=== PATIENT | male | born 1960 | race Asian ===

== ENCOUNTER → 2019-04-23 | Day surgery (SDC) | payer BC ==
[~2019-04-23] MED LIST: Acetaminophen TAB* 325 MG PO PRN; Buffered Lidocaine 1% SYRIN* 1 ML/SYRINGE INTRADERM ONE; Bupivacaine 0.5% W/EPI SDV* 10 ML VIAL INJ ONE; Dexamethasone IV* 4 MG/ML 1 ML (4 MG) ONE; DiMENhydriNATE IV* 50 MG/ML VIAL IV PUSH PRN; Glycopyrrolate IV* 0.2 MG/ML 1 ML VIAL ONE; Ketorolac INJ* 30 MG/ML 1 ML VIAL ONE; Lidocaine 1% INJ* 10 MG/ML 30 ML SDV ONE; Lidocaine 2% PF * 5 ML VIAL ONE; Metoclopramide IV* 5 MG/ML 2 ML VIAL ONE; Midazolam* 1 MG/ML 2 ML VIAL (2 MG) ONE; Naloxone* 0.4 MG/ML 1 ML VIAL IV PRN; Neostigmine Methylsulfate* 1 MG/ML 10 ML VIAL (1 mg/ml) ONE; Ondansetron INJ* 2 MG/ML VIAL ONE; Propofol* 10 MG/ML 20 ML BTL ONE; Rocuronium* 10 MG/ML VIAL ONE; ceFAZolin 2 GM PREMIX in ORs 2 GM/50 ML BAG ONE; fentaNYL* 50 MCG/ML 2 ML VIAL (100 MCG VIAL) IV PRN; fentaNYL* 50 MCG/ML 2 ML VIAL (100 MCG VIAL) ONE; oxyCODONE TAB* 5 MG TAB PO PRN
--- NOTE | 2019-04-23 09:46 | OP ---
Operative Report - Blank - Operative Report Date of Operation: 04/23/19 Note: OPERATIVE REPORT Pre-op: Lipoma right mid-back Post-Op: 16 cm lipoma right mid-back Procedure:Excision of lipoma right mid-back Surgeon: MD Amy Asst: none Anes: general with local , Dr. Chan IVF:min EBL:min Specimen: Lipoma from back Drain: none Wound: 1 Findings: Benign appearing lipoma To PACU
[2019-04-23 11:06] VITALS: BP 136/85
--- NOTE | 2019-04-23 21:17 | OP ---
CC: Dr. Sears * DATE OF OPERATION: 04/23/19 - SDS DATE OF : 56 SURGEON: Huber Reyes MD. IMCU NURSE: None. ANESTHESIOLOGIST: Dr. Chan. ANESTHESIA: General with local. PRE-OP DIAGNOSIS: Large right mid back lipoma. POST-OP DIAGNOSIS: Large 16-cm right mid back lipoma. OPERATIVE PROCEDURE: Excision of large lipoma, right mid back. ESTIMATED BLOOD LOSS: Minimal. WOUND CLASSIFICATION: I. COMPLICATIONS: None. DRAINS: None. SPECIMEN: Large lipoma. FINDINGS: As above. DESCRIPTION OF PROCEDURE: Written informed consent was obtained. The right back was marked with indelible ink and preoperative antibiotics were administered. The patient was taken to the operating room and sequential compression devices and warming blanket were applied. He was intubated in the supine position, and then placed in the prone position. Anesthesia had been administered. The upper back was prepped and draped in the usual sterile fashion. Time-out verification was completed. Then 1% lidocaine mixed with 0.25% Marcaine was infiltrated extensively in the right upper mid back overlying the palpable mass. A vertical incision of approximately 7 to 8 cm was made and a subcutaneous large 16 cm lipoma was excised from the subcutaneous tissue down to the muscle layer in several areas. There were several lobulations of the lipoma that were excised completely. Specimen was sent and it was felt to be approximately about 16 cm in length by approximately 13 cm in width. Hemostasis was ensured. The wound was then closed with layers of 2.0 Vicryl, 3- 0 Vicryl, and the skin was approximated with subcuticular 4-0 Vicryl suture. Steri-Strips and sterile dressings were applied. The patient tolerated the procedure well and sent to the recovery room in stable condition. [id number] #: [id number] [facility] [place] [facility]
== END | disposition home or self-care (01) ==
LOC: OR 06:48
PROVIDERS: ATTEND Surgery
DX: D17.1 Benign lipomatous neoplasm of skin and subcutaneous tissue of trunk (principal); K26.7 Chronic duodenal ulcer without hemorrhage or perforation; B18.1 Chronic viral hepatitis B without delta-agent; D18.03 Hemangioma of intra-abdominal structures
CPT/HCPCS: 88304; J0690; J1100; J1885; J2250; J2405; J2704; J2710; J2765; J3010